=== PATIENT | male | born 1940 | race Caucasian/White ===

== ENCOUNTER 2019-01-26 22:10 | Emergency (ER) | payer OTHER ==
[~2019-01-26] VITALS: Ht 175.3 cm; Wt 72.0 kg
[2019-01-26 22:13] VITALS: BP 148/93
[2019-01-26] MEDS ORDERED: LIDOCAINE-MPF 1%, 5ML ONE (22:35)
[2019-01-26] MEDS ORDERED: LIDOCAINE-MPF 1%, 5ML INFIL ONE (23:00)
== END 2019-01-27 00:56 | disposition home or self-care (01) ==
LOC: ED 01-27 00:50
DX: S01.81XA Laceration without foreign body of other part of head, initial encounter (principal); W01.0XXA Fall on same level from slipping, tripping and stumbling without subsequent striking against object, initial encounter; Y93.89 Activity, other specified; Y92.009 Unspecified place in unspecified non-institutional (private) residence as the place of occurrence of the external cause; Y99.8 Other external cause status
CPT/HCPCS: 12053; 12054; 70450; 70486; 72125

== ENCOUNTER 2019-08-02 14:49 | Emergency (ER) | payer OTHER ==
[~2019-08-02] VITALS: Ht 177.8 cm; Wt 92.0 kg
[2019-08-02 14:59] VITALS: BP 126/79
[2019-08-02] MEDS ORDERED: NEOSPORIN OINT. PKT 1 PACKET ONE (15:33)
== END 2019-08-02 15:43 | disposition home or self-care (01) ==
LOC: ED 15:20
DX: S51.012D Laceration without foreign body of left elbow, subsequent encounter (principal); X58.XXXD Exposure to other specified factors, subsequent encounter
CPT/HCPCS: 99281